=== PATIENT | female | born 2000 | race Caucasian/White ===

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

== ENCOUNTER 2019-06-19 20:54 | Emergency (ER) | payer OTHER, MEDICAID, SELFPAY ==
[2019-06-19 21:05] VITALS: BP 120/73; PULSE 93; RESP 15; TEMP 37.2; O2SAT 98; BMI 19.4
--- NOTE | 2019-06-19 21:18 | ED_ITS ---
HPI - Skin/Abscess/Foreign Bdy General Chief complaint: Allergic Reaction Stated complaint: hives and rash on face and neck Time Seen by Provider: 06/19/19 20:59 Source: patient Mode of arrival: Ambulatory Limitations: no limitations History of Present Illness HPI narrative: 18-year-old female daily smoker presents with friend and the chief complaint of hives on her face and behind her ears over the course of the day. She denies any swollen tongue, lips, throat or trouble swallowing or breathing. She states that her symptoms seemed to start after she put a new type of makeup on, for the 1st time ever. She denies any significant allergic type history. She denies any abdominal pain or diarrhea. She took 25 mg of Benadryl at home complaint: rash Onset (ago): hour(s) Tetanus up to date: yes Location: face Severity: moderate Quality: pruritic Relieving factors: none Context: other Associated symptoms: denies other symptoms Treatments prior to arrival: Benadryl Related Data Home Medications Medication Instructions Recorded Confirmed epinephrine 0.3 mg IM PRN PRN #0 01/29/17 06/19/19 levonorgestrel [Mirena] 1 ea INTRAUTERINE .ONCE 11/19/18 06/19/19 mesalamine [Delzicol] 800 mg PO TID 11/19/18 06/19/19 trazodone 50 mg PO BEDTIME 11/19/18 06/19/19 Previous Rx's Medication Instructions Recorded permethrin 5 % topical cream 1 applictn TOP Q14D #60 gram 06/19/19 prednisone 20 mg tablet See Rx Instructions PO .COMPLEX 6 06/19/19 Days #7 tab Allergies Allergy/AdvReac Type Severity Reaction Status Date / Time 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] Allergy Mild ALLERGY TO Verified 06/19/19 18:14 WALNUT fish derived [FISH DERIVED] Allergy Unknown VIOLENT Verified 06/19/19 18:14 VOMITING FROM SEAFOOD mushroom AdvReac Vomiting Verified 06/19/19 18:14 Review of Systems Constitutional Constitutional: Denies chills, Denies fatigue, Denies fever(s), Denies frequent falls, Denies lethargy and Denies weakness Eyes Eyes: Denies change in vision, Denies eye discharge, Denies irritation and Denies loss of vision ENT Ears, Nose, Mouth, and Throat: Denies change in voice, Denies dizziness, Denies neck pain, Denies sore throat and Denies throat swelling Cardiovascular Cardiovascular: Denies chest pain, Denies irregular heart rhythm, Denies lightheadedness, Denies palpitations, Denies dyspnea, Denies dyspnea on exertion and Denies orthopnea Respiratory Respiratory: Denies cough, Denies dyspnea, Denies dyspnea on exertion and Denies wheezing Gastrointestinal Gastrointestinal: Denies abdominal pain, Denies change in bowel habits, Denies diarrhea, Denies nausea and Denies vomiting Genitourinary Genitourinary: Denies hematuria, Denies flank pain, Denies urinary incontinence and Denies urinary urgency Musculoskeletal Musculoskeletal: Denies back pain, Denies muscle weakness, Denies neck pain, Denies numbness and Denies tingling Integumentary/Breasts Skin/Breast: Reports pruritus, Denies erythema, Denies rash, Reports skin swelling and Denies wounds Neurologic Neurologic: Denies behavioral changes, Denies confusion, Denies dizziness, Denies frequent falls, Denies loss of vision, Denies numbness, Denies tingling and Denies weakness Psychiatric Psychiatric: Denies anxiety, Denies behavioral changes, Denies confusion, Denies depression, Denies homicidal ideation and Denies suicidal ideation Endocrine Endocrine: Denies fatigue, Denies flushing and Denies palpitations Hematologic/Lymphatic Hematologic/Lymphatic: Denies easy bruising Allergic/Immunologic Allergic/Immunologic: Denies urticaria, Denies throat swelling and Denies wheezing Patient History Medical History ADHD (attention deficit hyperactivity disorder) (Acute Unknown) Colitis (Acute) Kawasaki syndrome (Resolved Unknown) Sleep disorder (Chronic Unknown) Thyroid cyst (Resolved ~04/2015) Surgical History Hx of thyroidectomy (Resolved 04/2015) Social History Smoking Status: Current every day smoker Smoking Status: Current every day smoker alcohol intake frequency: a few times a week Substance Use Type: does not use Exam Narrative Exam Narrative: GENERAL: [18] year old patient appears stated age. Well- nourished, well-developed patient, in mild distress. HEAD: Atraumatic. Normocephalic. Moderate hives forehead, no swelling of tongue, lips or throat. Most noted urticaria behind years. EYES: Pupils equal round and reactive. Extraocular motions intact. No scleral icterus. No injection or drainage. ENT: Nose without bleeding, purulent drainage. Throat without erythema, tonsillar hypertrophy or exudate. Airway patent. NECK: Trachea midline. Non tender CARDIOVASCULAR: Regular rate and rhythm without murmurs, gallops, or rubs. RESPIRATORY: Clear to auscultation. Breath sounds equal bilaterally. No wheezes, rales, or rhonchi. GASTROINTESTINAL: Abdomen soft, non-tender, nondistended. EXTREMITIES: No edema or joint tenderness. BACK: Nontender without deformity or crepitance. No flank tenderness. NEURO: AOx3. SKIN: No rash or erythema of visible areas Initial Vital Signs Initial Vital Signs: Vital Signs Temperature 99 F 06/19/19 21:05 Pulse Rate 93 H 06/19/19 21:05 Respiratory Rate 15 06/19/19 21:05 Blood Pressure 120/73 06/19/19 21:05 Pulse Oximetry 98 06/19/19 21:05 Course Course Course Narrative: Patient feeling improved after the above-stated therapies. She has no swelling of tongue, lip or throat. At no point has she had any trouble breathing. Return precautions given and questions answered to her apparent satisfaction Orders Ordered: Discontinued Medications Diphenhydramine HCl (Benadryl) 25 mg PO NOW ONE Stop: 06/19/19 21:37 Last Admin: 06/19/19 21:47 Dose: 25 mg Documented by: MEGGAN Prednisone (Deltasone) 40 mg PO NOW ONE Stop: 06/19/19 21:37 Last Admin: 06/19/19 21:47 Dose: 40 mg Documented by: MEGGAN Ranitidine HCl (Zantac) 300 mg PO NOW ONE Stop: 06/19/19 21:37 Last Admin: 06/19/19 21:47 Dose: 300 mg Documented by: MEGGAN Vital Signs Vital signs: Vital Signs - 8 hr 06/19/19 22:39 Pulse Rate 72 Respiratory Rate 13 Blood Pressure 110/62 Discharge Plan Departure Patient Disposition: Home Clinical Impression: Allergic reaction Qualifiers: Encounter type: initial encounter Qualified Code(s): T78.40XA - Allergy, unspecified, initial encounter Discharge Date/Time: 06/19/19 22:40 Instructions: DI for Hives, DI for General Allergic Reactions Activity Restrictions/Additional Instructions: *You have been diagnosed with [allergic reaction, possibly from your new foundation] *What to do: *Take medications as directed: You have a prescription for steroid. I would strongly recommend taking [id number] antihistamine such is Benadryl (diphenhydramine) and Pepcid as directed on the side of the box *Follow up with your primary care provider in 2-3 days, call for an appointment. Let them know you were seen in the Emergency Department and that we ask that you be seen in follow up *Return to ER if you should have any new, worsening or concerning symptoms, such as [trouble breathing, swallowing or other bothersome symptoms] Prescriptions: No Action prednisone 20 mg tablet See Rx Instructions PO .COMPLEX 6 Days Qty: 7 RF: 0 permethrin 5 % cream 1 applictn TOP Q14D Qty: 60 RF: 0 epinephrine 0.3 MG/0.3 ML auto-injector 0.3 mg IM PRN PRN (Reason: Allergic Reaction) Qty: 0 RF: 0 Mirena 20 mcg/24 hours (5 yrs) 52 mg Intrauterine Device 1 ea intrauterine .ONCE RF: 0 trazodone 50 MG tablet 50 mg PO BEDTIME RF: 0 mesalamine [Delzicol] 400 mg Capsule (With Del Rel Tablets) 800 mg PO TID RF: 0
[2019-06-19] MEDS: predniSONE 20 MG TABLET 40 MG PO (21:47)
[2019-06-19] MEDS: raNITIdine 150 MG CAPSULE 300 MG PO (21:47)
[2019-06-19] MEDS: diphenhydrAMINE 25 MG TABLET PO (21:47)
[2019-06-19 22:39] VITALS: BP 110/62; PULSE 72; RESP 13
--- NOTE | 2019-06-19 22:40 | PC.NURSE ---
reddness/rash much better/ will follow up as needed
== END 2019-06-19 22:40 | disposition home or self-care (01) ==
PROVIDERS: Emergency Provider Emergency Medicine
DX: T78.40XA Allergy, unspecified, initial encounter (principal)
CPT/HCPCS: 99283

== ENCOUNTER 2019-08-13 09:52 | Emergency (ER) | payer OTHER, MEDICAID, SELFPAY ==
[2019-08-13] VITALS (7 sets, daily range): BP systolic 99–140; BP diastolic 53–89; PULSE 98–113; RESP 13–21; TEMP 37; O2SAT 97–100; BMI 19.0
--- NOTE | 2019-08-13 10:06 | ED_ITS ---
HPI - Allergic Reaction General Chief complaint: Allergic Reaction Stated complaint: Allergic reaction, rash, lips swelling Time Seen by Provider: 08/13/19 10:01 Source: patient and other (friend at bedside) Mode of arrival: Ambulatory Limitations: no limitations History of Present Illness HPI narrative: This is a 18-year-old female who comes in with possible allergic reaction. Patient states about an hour prior to arrival she had Excedrin. She states that she did then developed hives all over as well as a little bit of swelling of her lip. She denies any swelling of her tongue or airway. No wheezing or tightness in her chest. No cough. She has been a little nauseated and felt ?gross? but no vomiting. No diarrhea or constipation. She has not appreciated any other changes. She has had hives intermittently in the past but they had not found a specific cause she has not had symptoms for several months. She has taken Excedrin in the past but had not linked it specifically to these symptoms. She is on mesalamine for ulcerative colitis and has a history of partial thyroidectomy for thyroid nodule. She also occasionally takes trazodone for sleep. She does not have any known medication allergies otherwise. Related Data Home Medications Medication Instructions Recorded Confirmed epinephrine 0.3 mg IM PRN PRN #0 01/29/17 06/19/19 levonorgestrel [Mirena] 1 ea INTRAUTERINE .ONCE 11/19/18 06/19/19 mesalamine [Delzicol] 800 mg PO TID 11/19/18 06/19/19 trazodone 50 mg PO BEDTIME 11/19/18 06/19/19 Previous Rx's Medication Instructions Recorded permethrin 5 % topical cream 1 applictn TOP Q14D #60 gram 06/19/19 epinephrine [EpiPen] 0.3 mg IM Q5-15M PRN #2 each 08/13/19 prednisone 40 mg PO DAILY #10 tab 08/13/19 ranitidine HCl [Zantac] 150 mg PO BID #10 tab 08/13/19 Allergies Allergy/AdvReac Type Severity Reaction Status Date / Time 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] Allergy Mild ALLERGY TO Verified 08/13/19 10:09 [place]NUT fish derived [FISH DERIVED] Allergy Unknown VIOLENT Verified 08/13/19 10:09 VOMITING FROM SEAFOOD mushroom AdvReac Vomiting Verified 08/13/19 10:09 Review of Systems Review of Systems ROS Unobtainable: All systems reviewed & are unremarkable except as noted in HPI and below Patient History Medical History ADHD (attention deficit hyperactivity disorder) (Acute Unknown) Colitis (Acute) Kawasaki syndrome (Resolved Unknown) Sleep disorder (Chronic Unknown) Thyroid cyst (Resolved ~04/2015) Surgical History Hx of thyroidectomy (Resolved 04/2015) Social History Smoking Status: Current every day smoker Smoking Status: Current every day smoker alcohol intake frequency: a few times a week Substance Use Type: does not use Exam Narrative Exam Narrative: GEN: well nourished, well appearing female, alert and oriented x 3, patient appears to be in mild distress. HEENT: Atraumatic, pupils are equal round reactive to light, extraocular movements are intact, nares are clear, TMs are clear with no fluid, there is no conjunctival pallor. Throat is clear without any exudates, erythema, tonsillar enlargement or uvular deviation, very faint swelling lower lip, difficulty to appreciate. HEART: Regular rate and rhythm without murmur, clicks, rubs. LUNGS:Lungs clear to auscultation, no wheezes, rales, crackles, chest moves symmetrically ABD:bowel sounds normal, soft, non-tender, no guarding, rebound, rigidity, no masses noted, no hepatosplenomegaly MSCL: Non-tender, no muscle atrophy, muscles strength 5/5 upper and lower extremities, full range of motion, normal gait NEURO:CN 2-12 intact, sensation normal SKIN: Patient has erythematous raised wheals that are patchy over face and upper torso as well as upper extremities. No blisters. No vesicles. Initial Vital Signs Initial Vital Signs: Vital Signs Temperature 98.6 F 08/13/19 10:00 Pulse Rate 109 H 08/13/19 10:00 Respiratory Rate 13 08/13/19 10:00 Blood Pressure 140/89 08/13/19 10:00 Pulse Oximetry 100 08/13/19 10:00 Course Orders Ordered: Discontinued Medications Diphenhydramine HCl (Benadryl) 50 mg IV NOW ONE Stop: 05/01/20 10:06 Last Admin: 08/13/19 10:10 Dose: 50 mg Documented by: MARIAELENA Epinephrine HCl (Adrenalin) 0.5 mg IM NOW ONE Stop: 08/13/19 11:28 Last Admin: 08/13/19 11:39 Dose: 0.5 mg Documented by: MARIAELENA Famotidine (Pepcid) 20 mg in 50 mls @ 200 mls/hr IV NOW ONE Stop: 08/13/19 10:19 Last Infusion: 08/13/19 10:22 Dose: 0 mls/hr Documented by: Admin: 08/13/19 10:10 Dose: 200 mls/hr Documented by: MARIAELENA Sodium Chloride (Normal Saline 0.9%) 1,000 mls @ 1,000 mls/hr IV BOLUS ONE Stop: 08/13/19 11:04 Last Infusion: 08/13/19 11:40 Dose: 0 mls/hr Documented by: Admin: 08/13/19 10:11 Dose: 1,000 mls/hr Documented by: MARIAELENA Methylprednisolone (Solu-Medrol 125 Mg Vial) 125 mg IV NOW ONE Stop: 08/13/19 10:06 Last Admin: 08/13/19 10:10 Dose: 125 mg Documented by: MARIAELENA Vital Signs Vital signs: Vital Signs - 8 hr 08/13/19 10:00 08/13/19 10:13 08/13/19 11:29 Temperature 98.6 F Pulse Rate 109 H 99 H 98 H Respiratory Rate 13 13 Blood Pressure 140/89 Blood Pressure [Left Arm] 120/76 Pulse Oximetry 100 100 08/13/19 12:41 08/13/19 13:22 08/13/19 13:51 Temperature Pulse Rate 112 H 111 H 105 H Respiratory Rate 21 20 19 Blood Pressure Blood Pressure [Left Arm] 102/54 L 99/53 L 107/67 Pulse Oximetry 99 98 97 08/13/19 14:19 Temperature Pulse Rate 113 H Respiratory Rate 20 Blood Pressure 119/75 Blood Pressure [Left Arm] Pulse Oximetry 99 MDM - Allergic Reaction MDM Narrative Medical decision making narrative: Patient received Pepcid, Benadryl and Solu- Medrol and on recheck patient's erythema is improved. She still has some hives present. Swelling of her lips has resolved. She states she is feeling better although shaky. On recheck @ 1128, patient has not any recurrence of swelling of the lips or mouth or oropharynx but she does feel like the hives have extended on her face again. Erythema has continued to improve but they do appear to be more spread out. One dose of epi IM was given @ 1139. On recheck patient is improved but does continue to have hives. She does feel better at this time. I have discussed plan to continue steroids, ranitidine and Benadryl as needed. She was given a prescription for EpiPen which she has an old one but states that it has for her seafood allergy. We discussed potential causes I would have her avoid Excedrin although it is not the clear cause opf her symptoms but is suspicious and encouraged her to have a tele-visit with her primary care for possible allergy testing or evaluation if she continues to have issues intermittently without a clear source Discharge Plan Departure Patient Disposition: Home Clinical Impression: Hives, Allergic reaction Discharge Date/Time: 08/13/19 14:19 Instructions: DI for Hives Activity Restrictions/Additional Instructions: Follow up with your physician for recheck if symptoms are not completely resolved in the next several days. Avoid Excedrin. Continue prednisone once daily until gone. Continue Zantac 150 mg twice daily x5 days EpiPen prescription was also sent, use this if you have any anaphylaxis symptoms. If you require use of an EpiPen you do need to come to the emergency department for evaluation. Carry an epipen with you at all times. Prescriptions were sent to [facility]. You may take 1-2 tablets of Benadryl [id number] every 6 hours as needed for symptoms. Return to the ER for fevers, recurrent swelling of the lips, tongue, mouth, airway, air of pharynx if you have shortness of breath or chest pain, wheezing, new or worsening rash, hives, persistent vomiting or other new or concerning symptoms. Prescriptions: New prednisone 20 mg tablet 40 mg PO DAILY Qty: 10 RF: 0 ranitidine HCl [Zantac] 150 mg tablet 150 mg PO BID Qty: 10 RF: 0 epinephrine [EpiPen] 0.3 mg/0.3 mL auto-injector 0.3 mg IM Q5-15M PRN (Reason: anaphylaxis) Qty: 2 RF: 0 No Action permethrin 5 % cream 1 applictn TOP Q14D Qty: 60 RF: 0 epinephrine 0.3 MG/0.3 ML auto-injector 0.3 mg IM PRN PRN (Reason: Allergic Reaction) Qty: 0 RF: 0 Mirena 20 mcg/24 hours (5 yrs) 52 mg Intrauterine Device 1 ea intrauterine .ONCE RF: 0 trazodone 50 MG tablet 50 mg PO BEDTIME RF: 0 mesalamine [Delzicol] 400 mg Capsule (With Del Rel Tablets) 800 mg PO TID RF: 0
[2019-08-13] MEDS: FAMOTIDINE 20 MG/50 ML PIGGYBACK 200 MG IV (10:10)
[2019-08-13] MEDS: methylPREDNISolone 125 MG/2 ML VIAL IV (10:10)
[2019-08-13] MEDS: diphenhydrAMINE 50 MG/ML VIAL IV (10:10)
[2019-08-13] MEDS: SODIUM CHLORIDE 0.9% 1,000 ML 1000 ML IV (10:11)
--- NOTE | 2019-08-13 11:38 | PC.NURSE ---
pt is complaining of increased swelling in mouth and back of neck. She is also experiencing more hives around her mouth. KOLBY Solorio and Dr Issa are aware.
[2019-08-13] MEDS: EPINEPHrine 1 MG/ML 0.5 MG IM (11:39)
--- NOTE | 2019-08-13 11:43 | PC.NURSE ---
pt reports her hives are coming back, a few hives noted on lips. no change in her airway. speaking in full sentences. denies SOB. Dr. Issa aware
--- NOTE | 2019-08-13 17:22 | PC.NURSE ---
Pt contacted the ED regarding her Zantac Rx.She was advised that Zantac was removed from being prescribed 5 months ago.Pt called requesting a substitute. Nurse spoke with Dr Issa. Orders received for Pepcid 20mg BID for total of 5 days.Pt states she uses the [facility] in [place]. A voicemail was left on [facility]'s phone for the Rx. Pt then was notified of this.No further action required.
== END 2019-08-13 14:19 | disposition home or self-care (01) ==
PROVIDERS: Emergency Provider Emergency Medicine
DX: L50.9 Urticaria, unspecified (principal); T78.40XA Allergy, unspecified, initial encounter
CPT/HCPCS: 36415; 96361; 96372; 96374; 96375; 99284; J0171; J1200; J2930

== ENCOUNTER → 2021-04-24 14:53 | Outpatient (CLI) | payer OTHER, MEDICAID, SELFPAY ==
[2021-04-24 16:00] LABS: COVID19 -Nasal RAPID POSITIVE (Negative)
== END ==
PROVIDERS: Referring Provider Student in an Organized Health Care Education/Training Program; Visit Provider Student in an Organized Health Care Education/Training Program
DX: U07.1 COVID-19 (principal); Z20.822 Contact with and (suspected) exposure to COVID-19
CPT/HCPCS: 87635